=== PATIENT | male | born 1990 | race Two or more races ===

== ENCOUNTER 2024-03-21 01:43 | Emergency (ER) | payer MEDICAID ==
[~2024-03-21] VITALS: Ht 175.3 cm; Wt 54.5 kg
[2024-03-21] MEDS: LORazepam 2MG/ML-1ML VIAL IV ONE ×6 (02:00→18:20)
[2024-03-21 02:05] VITALS: PULSE 81; RESP 19; O2SAT 95
[2024-03-21] MEDS: LORazepam 2MG/ML-1ML VIAL ONE ×2 (02:09→09:40)
[2024-03-21] MEDS: levETIRAcetam 1000 mg/100ml 100 ML IV ONE ×2 (02:45→15:29)
[2024-03-21 02:46] LABS: Alanine Aminotransferase 49 U/L (7-40); Alkaline Phosphatase 81 U/L (46-116); Anion Gap 8 (5-15); Aspartate Aminotransferase 23 U/L (13-40); BUN/Creatinine Ratio 10.1 (10.0-20.0); Blood Urea Nitrogen 8 mg/dL (9-23); Calcium 9.4 mg/dL (8.7-10.4); Carbon Dioxide 25 mmol/L (20-30); Chloride 94 mmol/L (98-107); Glucose 90 mg/dL (74-106); Potassium 4.9 mmol/L (3.5-5.1); Sodium 127 mmol/L (136-145)
[2024-03-21 02:47] LABS: Albumin 4.7 g/dL (3.2-4.8); Bilirubin, Total 0.5 mg/dL (0.2-1.0); Total Protein 7.2 g/dL (5.7-8.2)
[2024-03-21 02:59] LABS: Blood Alcohol < 3.0 mg/dL (<10)
[2024-03-21 03:20] LABS: Urine Bacteria None Seen /hpf (None Seen); Urine WBC None Seen /hpf (0 - 3)
[2024-03-21 03:33] LABS: Urine Blood Negative /uL (Negative); Urine Clarity Clear (Clear); Urine Color Colorless (Yellow); Urine Protein, UAD Negative (Negative); Urine Specific Gravity 1.005 (1.001-1.035); Urine Urobilinogen Normal (Negative); Urine pH 6.5 (5.0-9.0)
[2024-03-21 03:41] LABS: INR 1.08 (0.9-1.15); Prothrombin Time 11.4 sec (9.3-11.8)
[2024-03-21 03:49] LABS: Amphetamine Screen, Urine Neg (NEGATIVE); Barbiturate Scree,Urine Neg (NEGATIVE); Benzodiazephine Screen, Urine Pos (NEGATIVE); Cannabinoid Screen, Urine Neg (NEGATIVE); Cocaine Screen, Urine Neg (NEGATIVE); Opiate Scree,Urine Neg (NEGATIVE); Phencyclidine Screen, Urine Neg (NEGATIVE)
[2024-03-21 03:49] LABS: Basophils # (auto) 0.1 10 ^3/uL (0-0.2); Basophils % (auto) 1.3 % (0.0-2.0); Eosinophils # (auto) 0.4 10 ^3/uL (0-0.8); Eosinophils % (auto) 6.5 % (0.0-7.0); Hematocrit 39.1 % (41.0-53.0); Lymphocytes # (auto) 2.2 10 ^3/uL (0.4-5.4); Lymphocytes % (auto) 32.6 % (10.0-50.0); Mean Corpuscular Hgb Conc. 35.8 g/dL (32.0-36.0); Mean Corpuscular Volume 86.5 fL (80.0-100.0); Monocytes # (auto) 0.4 10 ^3/uL (0-1.3); Monocytes % (auto) 6.5 % (0.0-12.0); Neutrophils # (auto) 3.6 10 ^3/uL (1.6-8.6); Neutrophils % (auto) 53.1 % (37.0-80.0); Nucleated Red Blood Cells % 0.1 %; Platelet Count (auto) 276 10^3/uL (140-450); Red Blood Cells 4.52 10^6/uL (4.5-5.90); Red Cell Distribution Width 12.2 % (11.8-14.3); White Blood Cell 6.7 10^3/uL (4.4-10.8)
[2024-03-21] MEDS: SODIUM CHLORIDE 0.9% 1,000 ML IV ONE (04:02)
[2024-03-21 08:07] VITALS: PULSE 64; RESP 15; O2SAT 100
[2024-03-21 21:45] VITALS: O2SAT 97
[2024-03-22 08:41] VITALS: PULSE 71; RESP 17; O2SAT 98
[2024-03-22 14:40] VITALS: BP 110/53; PULSE 63; RESP 16; TEMP 98.1; O2SAT 98
== END 2024-03-22 15:05 | disposition left against medical advice (07) ==
LOC: ER 01:43 → EDBD 01:43 → ER 03-22 15:05
DX: R56.9 Unspecified convulsions (principal); Z53.29 Procedure and treatment not carried out because of patient's decision for other reasons
CPT/HCPCS: 36415; 70450; 71045; 80053; 80307; 80320; 81001; 82962; 84484; 85610; 85730; 93005; 96361; 96365; 96375; 96376; 99285; J1953; J2060